=== PATIENT | female | born 1950 | race Caucasian/White ===

== ENCOUNTER 2023-08-31 15:57 | Outpatient (RCR) | payer OTHER, SELFPAY | END 2023-09-02 11:04 | disposition home or self-care (01) | LOC: ROT 15:57 | PROVIDERS: ATTENDING PHYSICIAN Surgery Surgery of the Hand; PRIMARYCARE PHYSICIAN Family Medicine | DX: T81.40XD Infection following a procedure, unspecified, subsequent encounter (principal); M65.331 Trigger finger, right middle finger; Z73.6 Limitation of activities due to disability | CPT/HCPCS: 97018; 97140 ==

== ENCOUNTER → 2023-11-07 14:48 | Outpatient (REF) | payer OTHER, SELFPAY | LOC: WDC 14:48 | PROVIDERS: ATTENDING PHYSICIAN Obstetrics & Gynecology; FAMILY PHYSICIAN Internal Medicine Hematology & Oncology | DX: Z12.31 Encounter for screening mammogram for malignant neoplasm of breast (principal) | CPT/HCPCS: 77063; 77067 ==

== ENCOUNTER → 2024-06-08 06:29 | Day surgery (SDC) | payer OTHER, SELFPAY | LOC: GI 06:29 | PROVIDERS: ATTENDING PHYSICIAN Internal Medicine Gastroenterology; FAMILY PHYSICIAN Family Medicine | DX: R19.5 Other fecal abnormalities (principal); Z12.11 Encounter for screening for malignant neoplasm of colon; K64.8 Other hemorrhoids | CPT/HCPCS: G0121 ==

== ENCOUNTER → 2024-11-07 14:33 | Outpatient (REF) | payer OTHER, SELFPAY | LOC: WDC 14:33 | PROVIDERS: FAMILY PHYSICIAN Family Medicine | DX: Z12.31 Encounter for screening mammogram for malignant neoplasm of breast (principal) | CPT/HCPCS: 77063; 77067 ==

== ENCOUNTER → 2024-11-08 14:11 | Outpatient (REF) | payer OTHER, SELFPAY | LOC: RAD 14:11 | PROVIDERS: ATTENDING PHYSICIAN Physician Assistant Medical | DX: M25.512 Pain in left shoulder (principal) | CPT/HCPCS: 73030 ==

== ENCOUNTER → 2024-11-12 14:32 | Outpatient (REF) | payer OTHER, SELFPAY | LOC: RAD 14:32 | PROVIDERS: ATTENDING PHYSICIAN Internal Medicine Hematology & Oncology; FAMILY PHYSICIAN Family Medicine | DX: C50.412 Malignant neoplasm of upper-outer quadrant of left female breast (principal); M85.89 Other specified disorders of bone density and structure, multiple sites | CPT/HCPCS: 77080 ==